=== PATIENT | female | born 1945 | race Caucasian/White ===

== ENCOUNTER 2019-09-29 16:03 | Inpatient (IN) | payer MEDICARE, SELFPAY ==
[2019-09-29 16:08] VITALS: BP 98/63; PULSE 77; RESP 16; TEMP 36.3; O2SAT 100
[2019-09-29 17:30] VITALS: BP 108/81; PULSE 71; RESP 18; O2SAT 97
--- NOTE | 2019-09-29 18:11 | PC.NURSE ---
DAUGHTER JAYNE RIOS CALLED AND UPDATED PT'S MEDICATION LIST. CALL [phone] IF ANY QUESTIONS.
[2019-09-29 18:30] VITALS: BP 110/86; PULSE 70; RESP 16; O2SAT 97
[2019-09-29 19:01] LABS: Basophils Absolute Auto 0.1 K/mm3 (0.0-0.1); Eosinophils Absolute Auto 0.6 K/mm3 (0-0.3); Hematocrit 36.6 % (37.0-47.0); Hemoglobin 11.9 g/dL (12.0-15.0); Immature Granulocyte Absolute 0.03 K/mm3 (0.00-0.031); Immature Granulocyte Percent A 0.4 % (0-0.5); Lymphocytes Absolute Auto 1.57 K/mm3 (0.9-3.2); Lymphocytes Percent Auto 20.6 % (18.3-44.2); Mean Corpuscular HGB Conc 32.5 g/dl (32-36); Mean Corpuscular Hemoglobin 27.3 pg (26-34); Mean Corpuscular Volume 83.9 fl (80-100); Mean Platelet Volume 11.1 fl (7.4-10.4); Monocytes Absolute Auto 0.8 K/mm3 (0.1-0.6); Monocytes Percent Auto 10.2 % (2.6-8.5); Neutrophils Absolute Auto 4.6 K/mm3 (1.3-6.7); Neutrophils Percent Auto 59.8 % (45.5-73.1); Platelet Count Result 310 k/mm3 (150-375); Red Blood Count 4.36 M/mm3 (4.2-5.4); Red Cell Distribution Width 14.9 % (11.5-14.5); White Blood Count 7.6 K/mm3 (4.5-10.0)
[2019-09-29 19:13] LABS: Alanine Aminotransferase 11 U/L (4-35); Albumin Level 3.2 g/dL (3.5-5.1); Alkaline Phosphatase 110 U/L (38-126); Aspartate Amino Transferase 25 U/L (14-36); Bilirubin,Total 0.3 mg/dL (0.2-1.3); Blood Urea Nitrogen 41 mg/dL (7-17); Calcium 8.8 mg/dL (8.4-10.2); Carbon Dioxide 28 mmol/L (22-30); Chloride 85 mmol/L (98-107); Estimated CRCL calculation 3 ml/min; Estimated Glomerular Filt Rate 4; Glucose 84 mg/dL (65-105); Potassium 3.9 mmol/L (3.4-5.0); Sodium 127 mmol/L (137-145)
--- NOTE | 2019-09-29 19:41 | ED.WEAKNESS ---
HPI - Weakness General Chief complaint: Weakness Stated complaint: needs a place to stay Time Seen by Provider: 09/29/19 18:05 Source: patient Mode of arrival: ambulatory Limitations: no limitations History of Present Illness HPI Narrative: This is a 73-year-old female that presents to the emergency department for placement. Patient reports she is unsure why she is in the ER. Was told by her home health nurse that she did not think she could care for herself at home. She recently had a stroke and was in rehab therapy at [facility]. Was discharged home with home health. Her daughter spoke with her chief payroll clerk, Dr. Zimmerman. They were told to come to the ER to facilitate with placement. Patient currently does not have any complaints. Denies fever, chest pain, shortness of breath, abdominal pain, or vomiting. Related Data Home Medications Medication Instructions Recorded Confirmed aspirin [Adult Low Dose Aspirin] 09/29/19 09/29/19 atorvastatin 09/29/19 cinacalcet [Sensipar] mg PO 09/29/19 famotidine [Pepcid] 09/29/19 lanolin znnldsb-wg-p.pet-ceres applic TOPICAL 09/29/19 [Eucerin] sevelamer HCl [Renagel] 09/29/19 temazepam mg 09/29/19 Allergies Allergy/AdvReac Type Severity Reaction Status Date / Time No Known Allergies Allergy Verified 09/29/19 16:19 Review of Systems Review of Systems: Narrative: CONSTITUTIONAL: Denies fever CARDIOVASCULAR: Denies chest pain RESPIRATORY: Denies dyspnea. GASTROINTESTINAL: Denies abdominal pain, nausea, vomiting All systems reviewed & are unremarkable except as noted in HPI and below PMFSH Past Medical History Medical History (Updated 09/29/19 @ 20:30 by Yumiko Tay PA-C) History of chronic kidney disease History of gastroesophageal reflux (GERD) History of hyperlipidemia History of insomnia Exam Narrative: Exam Narrative: GENERAL: Elderly, well-nourished, and in no acute distress. HEAD: Normocephalic, atraumatic. EYES: EOMI. CHEST: Clear to auscultation. No respiratory distress. No wheezes rales or rhonchi HEART: Regular rate and rhythm. No murmur heard. Normal peripheral pulses. ABDOMEN: Soft, nontender, nondistended, normal active bowel sounds. PD catheter in the left side of the abdomen, without surrounding erythema or abnormal drainage EXTREMITIES: Normal range of motion. No edema. SKIN: Warm, dry, no rash. NEURO: No focal deficits. Alert and oriented x3. PSYCH: Normal mood and affect Course Consultations Consultation #1: Spoke with Dr. Zimmerman who reports he spoke with patient's daughter. Home health reported her home was inhabitable. There was apparently cockroaches and trash everywhere. Patient was clearly not taking care of herself. Patient will be admitted for placement and he will consult to manage her dialysis Date: 09/29/19 Time: 20:27 Consultation #2: Spoke with hospitalist about patient work-up who accepts admission Date: 09/29/19 Time: 20:28 Vital Signs Vital signs: Vital Signs Temperature 97.4 F L 09/29/19 16:08 Pulse Rate 77 09/29/19 16:08 Respiratory Rate 16 09/29/19 16:08 Blood Pressure 98/63 L 09/29/19 16:08 Pulse Oximetry 100 09/29/19 16:08 Temperature 97.4 F L 09/29/19 16:08 Pulse Rate 70 09/29/19 18:30 Respiratory Rate 16 09/29/19 18:30 Blood Pressure 110/86 09/29/19 18:30 Pulse Oximetry 97 09/29/19 18:30 MDM - Weakness MDM Narrative Medical decision making narrative: Patient presents to the emergency department for placement. Currently has no complaints. CBC without concerning findings. Metabolic panel consistent with her end-stage renal disease. Spoke with Dr. Zimmerman about patient and work-up. He was called by the daughter who reports [facility] came for their visit today and said her home was inhabitable. She was clearly not taking care of herself. Patient needs to be placed and will be admitted to the hospital awaiting placement. He will consult and manage her dialysis whi
[2019-09-29 21:20] VITALS: BP 121/74; PULSE 69; RESP 18; O2SAT 98
--- NOTE | 2019-09-29 22:22 | ADMGEN ---
This patient, Neli Winslow, was admitted to 2 Medical Room 242-. Patient/family oriented to hospital policies and general routines including ID bracelet, bed and alarms, visiting hours, pain management, procedures, bathroom and other care routines, personal items, smoking policy, room service/diet, and visiting hours. Valuables list has been completed. Information on how to activate the Rapid Response Team has been discussed. Patient/Family are encouraged to report perceived risks to care and to ask questions if they do not understand what they are told or what they should do.
--- NOTE | 2019-09-29 22:23 | PC.NURSE ---
report to [facility] on [facility]
[2019-09-29 22:30] VITALS: BP 135/73; PULSE 63; RESP 21; TEMP 36.1; O2SAT 100
[2019-09-29 22:51] VITALS: BMI 22.2
[2019-09-30 06:00] VITALS: BP 123/71; PULSE 66; RESP 21; TEMP 36; O2SAT 100
[2019-09-30] MEDS: CALCIUM CARBONATE (TUMS) 500 MG (200 MG ELEMENTAL) PO ×2 (09:45→20:15)
--- NOTE | 2019-09-30 09:48 | PM.IMHP ---
H&P: HPI History of Present Illness Chief complaint: Inability to care for self at home Narrative: Date of Service 09/30/19 0900 Ms. Winslow is a 73yo F with history of recent CVA 3 weeks ago, end-stage renal disease on peritoneal dialysis, hyperlipidemia who presented to the ED after reportedly a home health agency visited her home and had concerns for her to be living in her home alone. Per the records, a home health nurse noted the home to be full of trash, infested with cockroaches and described it as inhabitable. She follows with Dr Zimmerman for end-stage renal disease and tells me she has been on peritoneal dialysis for ten years. She describes she ambulates with a cane but has been having difficulty walking in her home. She reports she suffered a stroke around 3 weeks ago for which she was hospitalized at [facility] and then stayed at [facility] for therapy rehabilitation. She believes she came home from rehab last Saturday and has been living at home alone over the last 1 week. She tells me she has not had any issues carrying out her PD at home. This morning she reports heartburn and mild nausea without vomiting but otherwise has no complaints. She denies chest pain, shortness of breath, cough, fevers, sick contacts at home or recent travel. She denies abdominal pain, vomiting, constipation, or diarrhea. She is admitted to observation for help placement, which may be a difficult task given her peritoneal dialysis. She tells me she does not think she would be able to move in with family. Case management aware. Review of Systems Review of Systems: Narrative: Twelve systems were reviewed with pertinent positives and negatives as per HPI. 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 She reports rarely drinking alcohol, only on holidays. She denies tobacco or other substance use, never smoker. She tells me she does not have a primary care provider but thinks she was assigned on upon her recent discharge from [place] rehab. She designates her daughter, Crystal Winslow, as her surrogate decision maker and she wishes to be full code status. Smoking status: Never smoker Alcohol intake: current Alcohol use details: less than 1 drink per month, occasionally one drink on holidays like and Substance use: never Substance use type: does not use Living arrangements: alone Occupation/Education: retired Gender identity (if verbalized by the patient): Female Spiritual care concerns: No Meds Home Medications and Allergies Home Medications Medication Instructions Recorded Confirmed Type aspirin [Adult Low Dose Aspirin] 81 mg PO DAILY 09/29/19 09/29/19 History atorvastatin 40 mg PO DAILY 09/29/19 09/29/19 History cinacalcet [Sensipar] 60 mg PO DAILY 09/29/19 09/29/19 History famotidine [Pepcid] 20 mg PO DAILY 09/29/19 09/29/19 History lanolin dojynfy-el-a.pet-ceres 1 applic TOPICAL TID 09/29/19 09/29/19 History [Eucerin] sevelamer HCl [Renagel] 800 mg PO AC 09/29/19 09/29/19 History temazepam 15 mg PO HS PRN 09/29/19 09/29/19 History Allergies Allergy/AdvReac Type Severity Reaction Status Date / Time No Known Allergies Allergy Verified 09/29/19 16:19 Vital Signs Vital Signs - 24 hr 09/29/19 16:08 09/29/19 17:30 09/29/19 18:30 Temperature 97.4 F L Pulse Rate 77 71 70 Respiratory Rate 16 18 16 Blood Pressure 98/63 L 108/81
--- NOTE | 2019-09-30 13:26 | PM.CNNEP ---
Assessment and Plan Assessment and plan (1) End stage renal disease: Code(s): N18.6 - End stage renal disease Status: Chronic (2) History of CVA (cerebrovascular accident): Code(s): Z86.73 - Personal history of transient ischemic attack (TIA), and cerebral infarction without residual deficits Status: Acute (3) Discharge planning issues: Code(s): Z02.9 - Encounter for administrative examinations, unspecified Status: Acute Assessment and Plan: . Additional Plan Neli has end-stage renal disease and is on peritoneal dialysis. Unfortunately, her home living situation is such that it is not safe for her to return home given the deplorable conditions as outlined by home health nursing. Hence, she has been admitted to the hospital for placement. Placement is also somewhat complicated by the fact that she is on peritoneal dialysis and as there are not many facilities that will take a patient who is on peritoneal dialysis in general. The case finishing machine adjuster/case management has already contacted me and informed me that there are not any specific facilities that the patient can go where she can receive peritoneal dialysis in general. As there are no facilities that will take a patient who is on peritoneal dialysis, I will likely have to transition the patient to hemodialysis temporarily so she can receives reliable dialysis in general until she can be either set up with some type of assisted living situation or even perhaps maybe a new apartment where she could resume her home peritoneal dialysis. As far as I am aware, the patient still able to do peritoneal dialysis but she needs a safe environment to do so which unfortunately she does not have at this time. I will consult surgery to place a tunneled dialysis catheter for the transition to hemodialysis and try to arrange for the patient to be set up at a facility where they can transport her to and from dialysis until more permanent arrangements are made where she can be at a facility/apartment/complex where she can do home hemodialysis herself, if possible. I will continue follow the patient with you while she remains hospitalized a continue her peritoneal dialysis up until her tunneled dialysis catheters placed and I transition her to hemodialysis. Thank you for allowing me to participate in the care this patient. History of Present Illness Reason for Consult Consult date: 09/30/19 Reason for consult: end stage renal disease Chief Complaint Chief complaint: Inability to care for self at home History of Present Illness Narrative: The patient is a 73 y/o female with a past medical history as outlined below who presented to [facility] ER due to concerns regarding her home/living situation. The patient was just recently discharged from the [facility] associated with [facility] after suffering a CVA/stroke approximately 3 weeks ago where she was hospitalized at [facility]. She was transferred to the [facility] at [facility] for ongoing physical and occupational therapy. Upon complete of such therapy, she was deemed stable be discharged back home with continued follow-up by home health. The home health nurse did his initial visit yesterday but he found her home full of trash/garbage everywhere with evidence of roaches and insects present throughout the house and deemed her house to be inhabitable. The home health nurse contacted me since I am apparently the only physician really involved in her care since I follow her for her peritoneal dialysis. He recommended that the patient be sent back to the hospital so that measures could be taken for the patient to be discharged to a facility given the current home situation. Workup and evaluation emergency room was unremarkable as she was hemodynamically stable and had routine blood tests/labs that were consistent with her known history of end-stage raza
[2019-09-30 14:00] VITALS: BP 93/64; PULSE 75; RESP 19; TEMP 36.4; O2SAT 100
[2019-09-30] MEDS: FAMOTIDINE 20 MG TABLET PO (14:29)
[2019-09-30] MEDS: ASPIRIN 81 MG ENTERIC TABLET PO (14:29)
[2019-09-30] MEDS: SEVELAMER CARBONATE 800 MG TABLET PO ×2 (14:29→18:16)
[2019-09-30] MEDS: ATORVASTATIN 40 MG TABLET PO (14:29)
[2019-09-30] MEDS: EUCERIN CREAM 120 GM JAR 1 APPLIC TOPICAL ×2 (14:30→18:26)
[2019-09-30 20:00] VITALS: BP 101/66; PULSE 75; RESP 18; TEMP 36.6; O2SAT 100
[2019-10-01 04:00] VITALS: BP 102/58; PULSE 67; RESP 18; TEMP 36.3; O2SAT 98
[2019-10-01 06:22] LABS: Basophils Absolute Auto 0.1 K/mm3 (0.0-0.1); Eosinophils Absolute Auto 0.8 K/mm3 (0-0.3); Eosinophils Percent Auto 9.8 % (0-4.4); Hematocrit 32.6 % (37.0-47.0); Hemoglobin 10.8 g/dL (12.0-15.0); Immature Granulocyte Absolute 0.03 K/mm3 (0.00-0.031); Immature Granulocyte Percent A 0.4 % (0-0.5); Lymphocytes Absolute Auto 1.82 K/mm3 (0.9-3.2); Lymphocytes Percent Auto 23.8 % (18.3-44.2); Mean Corpuscular HGB Conc 33.1 g/dl (32-36); Mean Corpuscular Hemoglobin 27.3 pg (26-34); Mean Corpuscular Volume 82.3 fl (80-100); Monocytes Absolute Auto 0.9 K/mm3 (0.1-0.6); Monocytes Percent Auto 11.6 % (2.6-8.5); Neutrophils Absolute Auto 4.1 K/mm3 (1.3-6.7); Neutrophils Percent Auto 53.4 % (45.5-73.1); Platelet Count Result 289 k/mm3 (150-375); Red Blood Count 3.96 M/mm3 (4.2-5.4); Red Cell Distribution Width 14.5 % (11.5-14.5); White Blood Count 7.7 K/mm3 (4.5-10.0)
[2019-10-01 06:46] LABS: Albumin Level 2.6 g/dL (3.5-5.1); Blood Urea Nitrogen 36 mg/dL (7-17); Calcium 8.7 mg/dL (8.4-10.2); Carbon Dioxide 28 mmol/L (22-30); Chloride 90 mmol/L (98-107); Estimated CRCL calculation 4 ml/min; Estimated Glomerular Filt Rate 4; Glucose 82 mg/dL (65-105); Magnesium 1.8 mg/dL (1.6-2.3); Phosphorus 5.4 mg/dL (2.5-4.5); Sodium 128 mmol/L (137-145)
[2019-10-01 08:08] LABS: INR 1.1; Prothrombin Time 13.8 Seconds (11.1-14.7)
[2019-10-01 08:09] LABS: Partial Thromboplastin Time 33.7 SECONDS (22.3-36.8)
[2019-10-01] MEDS: POTASSIUM CHLORIDE 20 MEQ TABLET 40 MEQ PO (09:32)
[2019-10-01] MEDS: ASPIRIN 81 MG ENTERIC TABLET PO (09:33)
[2019-10-01] MEDS: SEVELAMER CARBONATE 800 MG TABLET PO ×3 (09:33→16:57)
[2019-10-01] MEDS: ATORVASTATIN 40 MG TABLET PO (09:33)
[2019-10-01] MEDS: EUCERIN CREAM 120 GM JAR 1 APPLIC TOPICAL ×3 (09:34→16:57)
[2019-10-01] MEDS: CINACALCET 30 MG TABLET 60 MG PO (09:34)
[2019-10-01] MEDS: FAMOTIDINE 20 MG TABLET PO (09:37)
--- NOTE | 2019-10-01 10:59 | PM.CNGS ---
Assessment and Plan Assessment and plan (1) End stage renal disease: Code(s): N18.6 - End stage renal disease Status: Chronic (2) Admission for fitting and adjustment of vascular catheter: Code(s): Z45.2 - Encounter for adjustment and management of vascular access device Status: Acute Assessment and Plan: Patient refuses tunneled central venous catheter for dialysis. No consult done. Will sign off. 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 She reports rarely drinking alcohol, only on holidays. She denies tobacco or other substance use, never smoker. She tells me she does not have a primary care provider but thinks she was assigned on upon her recent discharge from [place] rehab. She designates her daughter, Crystal Winslow, as her surrogate decision maker and she wishes to be full code status. Smoking status: Never smoker Alcohol intake: current Alcohol use details: less than 1 drink per month, occasionally one drink on holidays like and Substance use: never Substance use type: does not use Living arrangements: alone Occupation/Education: retired Gender identity (if verbalized by the patient): Female Spiritual care concerns: No Meds Home Medications and Allergies Home Medications Medication Instructions Recorded Confirmed Type aspirin [Adult Low Dose Aspirin] 81 mg PO DAILY 09/29/19 09/29/19 History atorvastatin 40 mg PO DAILY 09/29/19 09/29/19 History cinacalcet [Sensipar] 60 mg PO DAILY 09/29/19 09/29/19 History famotidine [Pepcid] 20 mg PO DAILY 09/29/19 09/29/19 History lanolin uculuff-ig-u.pet-ceres 1 applic TOPICAL TID 09/29/19 09/29/19 History [Eucerin] sevelamer HCl [Renagel] 800 mg PO AC 09/29/19 09/29/19 History temazepam 15 mg PO HS PRN 09/29/19 09/29/19 History Allergies Allergy/AdvReac Type Severity Reaction Status Date / Time No Known Allergies Allergy Verified 09/29/19 16:19 Vital Signs Vital Signs - 24 hr 09/30/19 14:00 09/30/19 20:00 10/01/19 04:00 Temperature 36.4 C 36.6 C 36.3 C L Pulse Rate 75 75 67 Respiratory Rate 19 18 18 Blood Pressure 93/64 L 101/66 102/58 L Pulse Oximetry 100 100 98 Results Labs Result diagrams: 10/01/19 05:33 10/01/19 05:33 Labs: Abnormal lab results 10/01/19 10/01/19 Range/Units 05:33 05:33 RBC 3.96 L (4.2-5.4) M/mm3 Hgb 10.8 L (12.0-15.0) g/dL Hct 32.6 L (37.0-47.0) % MPV 11.0 H (7.4-10.4) fl [place] % (Auto) 11.6 H (2.6-8.5) % Eos % (Auto) 9.8 H (0-4.4) % [place] # (Auto) 0.9 H (0.1-0.6) K/mm3 Eos # (Auto) 0.8 H (0-0.3) K/mm3 Sodium 128 L (137-145) mmol/L Potassium 3.0 L (3.4-5.0) mmol/L Chloride 90 L (98-107) mmol/L BUN 36 H (7-17) mg/dL Creatinine 10.00 H (0.7-1.0) mg/dL Estimated GFR 4 L (59 - ) Phosphorus 5.4 H (2.5-4.5) mg/dL Albumin 2.6 L (3.5-5.1) g/dL Diabetes panel 10/01/19 Range/Units 05:33 Sodium 128 L (137-145) mmol/L Potassium 3.0 L (3.4-5.0) mmol/L Chloride 90 L (98-107) mmol/L Carbon Dioxide 28 (22-30) mmol/L BUN 36 H (7-17) mg/dL Creatinine 10.00 H (0.7-1.0) mg/dL Glucose 82 (65-105) mg/dL Calcium 8.7 (8.4-10.2) mg/dL Albumin 2.6 L (3.5-5.1) g/dL Calcium panel 10/01/19 R
--- NOTE | 2019-10-01 13:08 | PM.IMPN ---
Progress Note: A&P Assessment and Plan (1) Discharge planning issues: Code(s): Z02.9 - Encounter for administrative examinations, unspecified Status: Acute Assessment and Plan: Patient was sent to ED by someone who visited the home and found her home to be inhabitable, with concerns for her to continue caring for herself at home. Case management aware. She will be going to stay with her daughter and will continue PD there. Will order PT/OT as she describes difficulty ambulating. Her PD supplies will be delivered to daughters home 10/07. CC is working with [employer] to get supplies delivered sooner. (2) ESRD on peritoneal dialysis: Code(s): N18.6 - End stage renal disease; Z99.2 - Dependence on renal dialysis Status: Chronic Assessment and Plan: Patient with ESRD tells me she has been on peritoneal dialysis for [address] Zimmerman and he has been consulted - appreciate recommendations. (3) History of CVA (cerebrovascular accident): Code(s): Z86.73 - Personal history of transient ischemic attack (TIA), and cerebral infarction without residual deficits Status: Acute Assessment and Plan: Patient describes recently having a stroke around 3 weeks ago for which she was hospitalized at [facility]. She stayed at [facility] for rehabilitation following her hospital stay and was discharged home 1 week ago. Continue ASA therapy and appreciate PT/OT evals. (4) GERD (gastroesophageal reflux disease): Qualifiers: Esophagitis presence: esophagitis presence not specified Qualified Code(s): K21.9 - Gastro-esophageal reflux disease without esophagitis Code(s): K21.9 - Gastro-esophageal reflux disease without esophagitis Status: Chronic Assessment and Plan: Stable at this time, will continue Tums prn and scheduled pepcid. (5) Hyperlipidemia: Qualifiers: Hyperlipidemia type: unspecified Qualified Code(s): E78.5 - Hyperlipidemia, unspecified Code(s): E78.5 - Hyperlipidemia, unspecified Status: Acute Assessment and Plan: Maintained on home statin therapy. Subjective Date/time seen: 10/01/19 13:08 Interval history: Date of service: 10/01/2019 She reports that she is feeling well today. She says she finally was able to get some rest last night and is feeling better. She does complain of left shoulder pain which she believes is due to pushing herself up in bed. She is urinating infrequently. She had a bowel movement yesterday but feels constipated today. Her appetite has been fair. She denies shortness of breath, chest pain, palpitations, abdominal pain, nausea, vomiting, fever, or chills. She has no additional concerns at this time. Review of Systems Review of Systems: Narrative: A 12 point review of systems was reviewed with pertinent positives and negatives as per HPI. Exam Narrative: Exam Narrative: General: Well-developed female resting comfortably, sitting up in bed in acute distress. HEENT: Normocephalic, atraumatic, EOMI, PERRL. Left facial droop noted. Neck: Supple. No lymphadenopathy. Chest: Faint bibasilar crackles; respirations even and nonlabored. Tolerating room air. Heart: Heart rate and rhythm regular with S1-S2. Abdomen: Soft, nontender, nondistended, bowel sounds present. PD catheter noted with clean/dry/intact dressing. Skin: Warm, dry, no rashes or lesions noted on limited exam. Extremities: Peripheral pulses intact. No edema, erythema, cyanosis, or clubbing. Neurologic: Alert and oriented x4. Upper extremity strength 5/5 bilaterally. Left facial droop noted. Speech is clear. Psychiatric: Mood and affect are normal, cooperative. Judgment and insight intact. Objective Data Vital Signs Vital Signs: Vital Signs - 24 hr 09/30/19 14:00 09/15
[2019-10-01] MEDS: ACETAMINOPHEN 325 MG TABLET 650 MG PO (13:16)
[2019-10-01] MEDS: SENNA/DOCUSATE SODIUM TABLET 1 TAB PO (13:17)
[2019-10-01 14:00] VITALS: BP 99/66; PULSE 96; RESP 14; TEMP 36.3; O2SAT 100
--- NOTE | 2019-10-01 16:52 | PM.PNNEP ---
Progress Note: A&P Assessment and Plan (1) End stage renal disease: Code(s): N18.6 - End stage renal disease Status: Chronic Assessment and Plan: continue CCPD while hospitalized daughter now able to take to her home -- she can do peritoneal dialysis there (so need for HD catheter placement) will try to facilitate transfer of supplies and PD cycler to daughter's home (2) History of CVA (cerebrovascular accident): Code(s): Z86.73 - Personal history of transient ischemic attack (TIA), and cerebral infarction without residual deficits Status: Acute Assessment and Plan: continue PT/OT as tolerated (3) Discharge planning issues: Code(s): Z02.9 - Encounter for administrative examinations, unspecified Status: Acute Assessment and Plan: daughter now willing take patient to her home temporarily patient should be able to do PD treatments at daughter's home working on trying to facilitate delivery of PD supplies to daughter'ss home Will continue to follow. Subjective Date/time seen: 10/01/19 16:52 Tolerated peritoneal dialysis last night without any issues or problems; refused tunneled HD catheter placement this AM as she does not want to do hemodialysis informed that daughter now willing to take her to live with her and continue peritoneal dialysis. Exam Narrative: Exam Narrative: General: WD/WN female in NAD Heart: normal S1 and S2; no rub Lungs: clear to auscultation Abdomen: soft, nontender, nondistended, positive bowel sounds Extremities: no cyanosis or clubbing; no edema Skin: warm and dry Objective Data Vital Signs Vital Signs: Vital Signs Temp Pulse Resp BP Pulse Ox 10/01/19 14:00 36.3 C L 96 14 99/66 L 100 10/01/19 04:00 36.3 C L 67 18 102/58 L 98 09/30/19 20:00 36.6 C 75 18 101/66 100 Intake/Output Intake/Output: Intake & Output 09/28/19 09/29/19 09/30/19 10/01/19 23:59 23:59 23:59 23:59 Intake Total 1270 340 Output Total 429 Balance 1270 -89 Meds/Results Medications: Active Medications Generic Name Dose Route Start Last Admin Trade Name Freq PRN Reason Stop Dose Admin Acetaminophen 650 mg 10/01/19 12:45 10/01/19 13:16 Tylenol Tablet PO 650 mg Q4H PRN Administration Mild Pain (1-3) or Fever Aspirin 81 mg 09/30/19 09:00 10/01/19 09:33 Aspirin Ec PO 81 mg DAILY MARIBELL Administration Atorvastatin Calcium 40 mg 09/30/19 09:00 10/01/19 09:33 Lipitor PO 40 mg DAILY MARIBELL Administration Calcium Carbonate 200 mg 09/30/19 09:24 09/30/19 20:15 Tums PO 200 mg Q6H PRN Administration Indigestion Cinacalcet 60 mg 09/30/19 09:00 10/01/19 09:34 Sensipar PO 60 mg QAM MARIBELL Administration Famotidine 20 mg 09/30/19 09:00 10/01/19 09:37 Pepcid PO 20 mg DAILY MARIBELL Administration Multi-Ingred Cream/Lotion/Oil/Oint 1 applic 09/30/19 09:00 10/01/19 12:40 Minerin Creme TOPICAL 1 applic TID MARIBELL Administration Senna/Docusate Sodium 1 tab 10/01/19 12:45 10/01/19 13:17 Senokot S Tablet PO 1 tab DAILY PRN Administration Constipation Sevelamer Carbonate 800 mg 09/30/19 08:00 10/01/19 12:40 Renvela PO 800 mg TIDWM MARIBELL Administration Temazepam 15 mg 09/30/19 02:53 Restoril PO HS PRN Sleep Labs Labs: Laboratory Tests 10/01/19 05:33 10/01/19 05:33 Microbiology 09/30/19 00:41 Blood Blood Culture - Preliminary 09/30/19 00:43 Blood Blood Culture - Preliminary Quality Patient tolerated peritoneal dialysis yesterday evening without any problems ([id number]).
[2019-10-01 22:00] VITALS: BP 110/80; PULSE 70; RESP 21; TEMP 36.6; O2SAT 100
[2019-10-01] MEDS: CALCIUM CARBONATE (TUMS) 500 MG (200 MG ELEMENTAL) PO (22:10)
[2019-10-02 05:42] LABS: Hemoglobin 10.7 g/dL (12.0-15.0); Mean Corpuscular HGB Conc 32.4 g/dl (32-36); Mean Corpuscular Hemoglobin 27.2 pg (26-34); Mean Corpuscular Volume 83.8 fl (80-100); Mean Platelet Volume 10.5 fl (7.4-10.4); Platelet Count Result 278 k/mm3 (150-375); Red Blood Count 3.94 M/mm3 (4.2-5.4); Red Cell Distribution Width 14.9 % (11.5-14.5); White Blood Count 7.4 K/mm3 (4.5-10.0)
[2019-10-02 06:00] VITALS: BP 122/72; PULSE 70; RESP 21; TEMP 36.4; O2SAT 100
[2019-10-02 06:08] LABS: Blood Urea Nitrogen 35 mg/dL (7-17); Calcium 8.5 mg/dL (8.4-10.2); Carbon Dioxide 28 mmol/L (22-30); Chloride 91 mmol/L (98-107); Estimated CRCL calculation 4 ml/min; Estimated Glomerular Filt Rate 4; Glucose 74 mg/dL (65-105); Magnesium 1.8 mg/dL (1.6-2.3); Phosphorus 4.9 mg/dL (2.5-4.5); Potassium 3.4 mmol/L (3.4-5.0); Sodium 128 mmol/L (137-145)
[2019-10-02] MEDS: SEVELAMER CARBONATE 800 MG TABLET PO ×3 (08:06→16:52)
[2019-10-02] MEDS: ASPIRIN 81 MG ENTERIC TABLET PO (08:06)
[2019-10-02] MEDS: FAMOTIDINE 20 MG TABLET PO (08:07)
[2019-10-02] MEDS: CINACALCET 30 MG TABLET 60 MG PO (08:07)
[2019-10-02] MEDS: ATORVASTATIN 40 MG TABLET PO (08:07)
[2019-10-02] MEDS: EUCERIN CREAM 120 GM JAR 1 APPLIC TOPICAL ×3 (08:07→16:52)
[2019-10-02] MEDS: ACETAMINOPHEN 325 MG TABLET 650 MG PO (08:07)
--- NOTE | 2019-10-02 09:42 | PM.IMPN ---
Progress Note: A&P Assessment and Plan (1) Discharge planning issues: Code(s): Z02.9 - Encounter for administrative examinations, unspecified Status: Acute Assessment and Plan: Patient was sent to ED by someone who visited the home and found her home to be inhabitable, with concerns for her to continue caring for herself at home. Case management aware. She will be going to stay with her daughter and will continue PD there. Her PD supplies will be delivered to daughters home 10/04. (2) ESRD on peritoneal dialysis: Code(s): N18.6 - End stage renal disease; Z99.2 - Dependence on renal dialysis Status: Chronic Assessment and Plan: Patient with ESRD tells me she has been on peritoneal dialysis for [address] Zimmerman and he has been consulted - appreciate recommendations. (3) History of CVA (cerebrovascular accident): Code(s): Z86.73 - Personal history of transient ischemic attack (TIA), and cerebral infarction without residual deficits Status: Chronic Assessment and Plan: Patient describes recently having a stroke around 3 weeks ago for which she was hospitalized at [facility]. She stayed at [facility] for rehabilitation following her hospital stay and was discharged home 09/22.\ Continue ASA therapy and PT/OT. (4) GERD (gastroesophageal reflux disease): Qualifiers: Esophagitis presence: esophagitis presence not specified Qualified Code(s): K21.9 - Gastro-esophageal reflux disease without esophagitis Code(s): K21.9 - Gastro-esophageal reflux disease without esophagitis Status: Chronic Assessment and Plan: Stable at this time, will continue Tums prn and scheduled pepcid. (5) Hyperlipidemia: Qualifiers: Hyperlipidemia type: unspecified Qualified Code(s): E78.5 - Hyperlipidemia, unspecified Code(s): E78.5 - Hyperlipidemia, unspecified Status: Chronic Assessment and Plan: Maintained on home statin therapy. Subjective Date/time seen: 10/02/19 09:20 Interval history: Ms. Winslow is a 73yo F with ESRD on peritoneal dialysis admitted for discharge planning issues, see above. She reports feeling well today and offers no complaints. She slept okay last night and no issues with PD overnight. She denies chest pain or shortness of breath. She is tolerating oral intake without nausea or vomiting. Review of Systems Review of Systems: Narrative: Twelve systems were reviewed with pertinent positives and negatives as per HPI. Exam Narrative: Exam Narrative: General: Female resting comfortably, sitting up in bed in acute distress. HEENT: Normocephalic, atraumatic, EOMI. Left facial droop noted. Neck: Supple. Chest: Lungs clear to auscultation; respirations even and nonlabored. Tolerating room air. Heart: Heart rate and rhythm regular. Abdomen: Soft, nontender, nondistended, bowel sounds present. PD catheter noted with clean/dry/intact dressing. Extremities: Peripheral pulses intact. No edema. Neurologic: Alert and oriented. Left facial droop from recent CVA is noted. Speech is clear. Objective Data Vital Signs Vital Signs: Last Vital Signs Temp 97.5 F L 10/02/19 06:00 Pulse 70 10/02/19 06:00 Resp 21 H 10/02/19 06:00 BP 122/72 10/02/19 06:00 Pulse Ox 100 10/02/19 06:00 Intake/Output Intake/Output: Intake & Output 09/29/19 09/30/19 10/01/19 10/02/19 23:59 23:59 23:59 23:59 Intake Total 1270 980 400 Output Total 429 Balance 1270 551 400 Meds/Results Medications: Active Medications Generic Name Dose Route Start Last Admin Trade Name Freq PRN Reason Stop Dose Admin Acetaminophen 650 mg 10/01/19 12:45 10/02/19 08:07 Tylenol Tablet PO 650 mg Q4H PRN Administration Mild Pain (1-3) or Fever Aspirin 81 mg
--- NOTE | 2019-10-02 12:07 | PM.PNNEP ---
Progress Note: A&P Assessment and Plan (1) End stage renal disease: Code(s): N18.6 - End stage renal disease Status: Chronic Assessment and Plan: continue CCPD while hospitalized daughter now able to take to her home -- she can do peritoneal dialysis there (so need for HD catheter placement) will try to facilitate transfer of supplies and PD cycler to daughter's home as soon as possible (2) History of CVA (cerebrovascular accident): Code(s): Z86.73 - Personal history of transient ischemic attack (TIA), and cerebral infarction without residual deficits Status: Chronic Assessment and Plan: continue PT/OT as tolerated (3) Discharge planning issues: Code(s): Z02.9 - Encounter for administrative examinations, unspecified Status: Acute Assessment and Plan: daughter now willing take patient to her home temporarily patient should be able to do PD treatments at daughter's home working on trying to facilitate delivery of PD supplies to daughter'ss home Will continue to follow. Subjective Date/time seen: 10/02/19 12:07 No new issues or problems to report; tolerating nightly CCPD without any issues or problems; no apparent distress noted. Exam Narrative: Exam Narrative: General: WD/WN female in NAD Heart: normal S1 and S2; no rub Lungs: clear to auscultation Abdomen: soft, nontender, nondistended, positive bowel sounds Extremities: no cyanosis or clubbing; no edema Skin: warm and intact Objective Data Vital Signs Vital Signs: Vital Signs Temp Pulse Resp BP Pulse Ox 10/02/19 06:00 36.4 C L 70 21 H 122/72 100 10/01/19 22:00 36.6 C 70 21 H 110/80 100 10/01/19 14:00 36.3 C L 96 14 99/66 L 100 Intake/Output Intake/Output: Intake & Output 09/29/19 09/30/19 10/01/19 10/02/19 23:59 23:59 23:59 23:59 Intake Total 1270 980 640 Output Total 429 Balance 1270 551 640 Meds/Results Medications: Active Medications Generic Name Dose Route Start Last Admin Trade Name Freq PRN Reason Stop Dose Admin Acetaminophen 650 mg 10/01/19 12:45 10/02/19 08:07 Tylenol Tablet PO 650 mg Q4H PRN Administration Mild Pain (1-3) or Fever Aspirin 81 mg 07/15/20 09:00 10/02/19 08:06 Aspirin Ec PO 81 mg DAILY MARIBELL Administration Atorvastatin Calcium 40 mg 09/30/19 09:00 10/02/19 08:07 Lipitor PO 40 mg DAILY MARIBELL Administration Calcium Carbonate 200 mg 09/30/19 09:24 10/01/19 22:10 Tums PO 200 mg Q6H PRN Administration Indigestion Cinacalcet 60 mg 09/30/19 09:00 10/02/19 08:07 Sensipar PO 60 mg QAM [facility] Administration Famotidine 20 mg 09/30/19 09:00 10/02/19 08:07 Pepcid PO 20 mg DAILY MARIBELL Administration Multi-Ingred Cream/Lotion/Oil/Oint 1 applic 09/30/19 09:00 10/02/19 08:07 Minerin Creme TOPICAL 1 applic TID MAR[facility] Administration Polyethylene Glycol 17 gm 10/01/19 16:52 Miralax PO QAM PRN Constipation Senna/Docusate Sodium 1 tab 10/01/19 12:45 10/01/19 13:17 Senokot S Tablet PO 1 tab DAILY PRN Administration Constipation Sevelamer Carbonate 800 mg 09/30/19 08:00 10/02/19 08:06 Renvela PO 800 mg TIDWM [facility] Administration Temazepam 15 mg 09/30/19 02:53 Restoril PO HS PRN Sleep Labs Labs: Laboratory Tests 10/02/19 05:01 10/02/19 05:01 Microbiology 09/30/19 00:43 Blood Blood Culture - Preliminary
[2019-10-02 14:00] VITALS: BP 108/70; PULSE 77; RESP 18; TEMP 36.2; O2SAT 100
[2019-10-02] MEDS: CALCIUM CARBONATE (TUMS) 500 MG (200 MG ELEMENTAL) PO (16:54)
[2019-10-02 22:00] VITALS: BP 107/71; PULSE 71; RESP 18; TEMP 36.9; O2SAT 99
[2019-10-03 05:42] LABS: Hematocrit 33.7 % (37.0-47.0); Hemoglobin 11.1 g/dL (12.0-15.0)
[2019-10-03 05:50] LABS: Albumin Level 2.7 g/dL (3.5-5.1); Blood Urea Nitrogen 34 mg/dL (7-17); Calcium 8.4 mg/dL (8.4-10.2); Carbon Dioxide 27 mmol/L (22-30); Chloride 92 mmol/L (98-107); Estimated CRCL calculation 4 ml/min; Estimated Glomerular Filt Rate 4; Glucose 88 mg/dL (65-105); Magnesium 1.8 mg/dL (1.6-2.3); Potassium 3.3 mmol/L (3.4-5.0); Sodium 128 mmol/L (137-145)
[2019-10-03 06:00] VITALS: BP 93/55; PULSE 70; RESP 16; TEMP 36.3; O2SAT 97
--- NOTE | 2019-10-03 09:20 | PM.IMPN ---
Progress Note: A&P Assessment and Plan (1) Discharge planning issues: Code(s): Z02.9 - Encounter for administrative examinations, unspecified Status: Acute Assessment and Plan: Patient was sent to ED by someone who visited the home and found her home to be inhabitable, with concerns for her to continue caring for herself at home. Case management aware. She will be going to stay with her daughter and will continue PD there. Her PD supplies will be delivered to daughters home 10/04. Plan for discharge Saturday. (2) ESRD on peritoneal dialysis: Code(s): N18.6 - End stage renal disease; Z99.2 - Dependence on renal dialysis Status: Chronic Assessment and Plan: Patient with ESRD tells me she has been on peritoneal dialysis for [address] Zimmerman and he has been consulted - appreciate recommendations. (3) History of CVA (cerebrovascular accident): Code(s): Z86.73 - Personal history of transient ischemic attack (TIA), and cerebral infarction without residual deficits Status: Chronic Assessment and Plan: Patient describes recently having a stroke around 3 weeks ago for which she was hospitalized at [facility]. She stayed at [facility] for rehabilitation following her hospital stay and was discharged home 09/22. Continue ASA therapy and PT/OT. (4) GERD (gastroesophageal reflux disease): Qualifiers: Esophagitis presence: esophagitis presence not specified Qualified Code(s): K21.9 - Gastro-esophageal reflux disease without esophagitis Code(s): K21.9 - Gastro-esophageal reflux disease without esophagitis Status: Chronic Assessment and Plan: No issues this morning, will continue Tums PRN and scheduled pepcid. (5) Hyperlipidemia: Qualifiers: Hyperlipidemia type: unspecified Qualified Code(s): E78.5 - Hyperlipidemia, unspecified Code(s): E78.5 - Hyperlipidemia, unspecified Status: Chronic Assessment and Plan: Maintained on home statin therapy. Subjective Date/time seen: 10/03/19 0845 Interval history: Ms. Winslow is a 73yo F with ESRD on peritoneal dialysis admitted for discharge planning issues, see above. She feels well today and offers no complaints other than not sleeping well last night. She denies chest pain, shortness of breath, or calf tenderness. Tolerated some breakfast without nausea, vomiting, or abdominal pain. Review of Systems Review of Systems: Narrative: Twelve systems were reviewed with pertinent positives and negatives as per HPI. Exam Narrative: Exam Narrative: General: Female resting comfortably in bed in acute distress. HEENT: Normocephalic, atraumatic, EOMI. Left facial droop noted. Neck: Supple. Chest: Lungs clear to auscultation; respirations even and nonlabored. Tolerating room air. Heart: Heart rate and rhythm regular. Abdomen: Soft, nontender, nondistended, bowel sounds present. PD catheter noted with clean/dry/intact dressing. Extremities: Peripheral pulses intact. No edema. Neurologic: Alert and oriented. Left facial droop from recent CVA is noted. Speech is clear. Objective Data Vital Signs Vital Signs: Last Vital Signs Temp 97.3 F L 10/03/19 06:00 Pulse 70 10/03/19 06:00 Resp 16 10/03/19 06:00 BP 93/55 L 10/03/19 06:00 Pulse Ox 97 10/03/19 06:00 Intake/Output Intake/Output: Intake & Output 09/30/19 10/01/19 10/02/19 10/03/19 23:59 23:59 23:59 23:59 Intake Total 7936 217 8544 200 Output Total 331 960 5218 Balance 1270 551 163 -875 Meds/Results Medications: Active Medications Generic Name Dose Route Start Last Admin Trade Name Freq PRN Reason Stop Dose Admin Acetaminophen 650 mg 10/01/19 12:45 10/02/19 08:07 Tylenol Tablet PO 650 mg Q4H PRN Administration Mild Pain (1-3) or
[2019-10-03] MEDS: ONDANSETRON INJ 4 MG/2 ML VIAL IV PUSH (10:08)
[2019-10-03] MEDS: ASPIRIN 81 MG ENTERIC TABLET PO (11:18)
[2019-10-03] MEDS: SEVELAMER CARBONATE 800 MG TABLET PO ×2 (11:18→18:14)
[2019-10-03] MEDS: MAGNESIUM OXIDE 400 MG TABLET PO (11:18)
[2019-10-03] MEDS: FAMOTIDINE 20 MG TABLET PO (11:18)
[2019-10-03] MEDS: POTASSIUM CHLORIDE 20 MEQ TABLET 40 MEQ PO (11:18)
[2019-10-03] MEDS: ATORVASTATIN 40 MG TABLET PO (11:19)
[2019-10-03] MEDS: EUCERIN CREAM 120 GM JAR 1 APPLIC TOPICAL (11:20)
--- NOTE | 2019-10-03 12:19 | PM.PNNEP ---
Progress Note: A&P Assessment and Plan (1) End stage renal disease: Code(s): N18.6 - End stage renal disease Status: Chronic Assessment and Plan: continue CCPD while hospitalized daughter now able to take to her home -- she can do peritoneal dialysis there (so need for HD catheter placement) will try to facilitate transfer of supplies and PD cycler to daughter's home as soon as possible (possibly be there by Saturday?) (2) History of CVA (cerebrovascular accident): Code(s): Z86.73 - Personal history of transient ischemic attack (TIA), and cerebral infarction without residual deficits Status: Chronic Assessment and Plan: continue PT/OT as tolerated (3) Discharge planning issues: Code(s): Z02.9 - Encounter for administrative examinations, unspecified Status: Acute Assessment and Plan: daughter now willing take patient to her home temporarily patient should be able to do PD treatments at daughter's home working on trying to facilitate delivery of PD supplies to daughter'ss home Will continue to follow. Subjective Date/time seen: 10/03/19 12:19 She appears to be doing reasonably well; no new issues or problems to report; CCPD treatment was uneventful; no apparent distress or new concerns voiced at this time. Exam Narrative: Exam Narrative: General: WD/WN female in NAD Heart: normal S1 and S2; no rub Lungs: clear to auscultation Abdomen: soft, nontender, nondistended, positive bowel sounds Extremities: no cyanosis or clubbing; no edema Skin: No rash or nodules Objective Data Vital Signs Vital Signs: Vital Signs Temp Pulse Resp BP Pulse Ox 10/03/19 06:00 36.3 C L 70 16 93/55 L 97 10/02/19 22:00 36.9 C 71 18 107/71 99 10/02/19 14:00 36.2 C L 77 18 108/70 100 Intake/Output Intake/Output: Intake & Output 09/30/19 10/01/19 10/02/19 10/03/19 23:59 23:59 23:59 23:59 Intake Total 3810 595 5770 440 Output Total 346 470 9467 Balance 1270 551 163 -745 Meds/Results Medications: Active Medications Generic Name Dose Route Start Last Admin Trade Name Freq PRN Reason Stop Dose Admin Acetaminophen 650 mg 10/01/19 12:45 10/02/19 08:07 Tylenol Tablet PO 650 mg Q4H PRN Administration Mild Pain (1-3) or Fever Aspirin 81 mg 09/30/19 09:00 10/03/19 11:18 Aspirin Ec PO 81 mg DAILY MARIBELL Administration Atorvastatin Calcium 40 mg 09/30/19 09:00 10/03/19 11:19 Lipitor PO 40 mg DAILY MARIBELL Administration Calcium Carbonate 200 mg 09/30/19 09:24 10/02/19 16:54 Tums PO 200 mg Q6H PRN Administration Indigestion Cinacalcet 60 mg 09/30/19 09:00 10/03/19 12:16 Sensipar PO Not Given QAM MARIBELL Famotidine 20 mg 09/30/19 09:00 10/03/19 11:18 Pepcid PO 20 mg DAILY MARIBELL Administration Magnesium Oxide 400 mg 10/03/19 09:00 10/03/19 11:18 Mag-Ox PO 400 mg QAM [facility] Administration Multi-Ingred Cream/Lotion/Oil/Oint 1 applic 09/30/19 09:00 10/03/19 11:20 Minerin Creme TOPICAL 1 applic TID [facility] Administration Ondansetron HCl 4 mg 10/03/19 10:00 10/03/19 10:08 Zofran Inj IV PUSH 4 mg Q6H PRN Administration Nausea And Vomiting Polyethylene Glycol 17 gm 10/01/19 16:52 Miralax PO QAM PRN Constipation Senna/Docusate Sodium 1 tab 10/01/19 12:45 10/01/19 13:17 Senokot S Tablet PO 1 tab DAILY PRN Administration Constipation Sevelamer Carbonate 800 mg 09/30/19 08:00 10/03/19 11:18 Renvela PO 800 mg TIDWM [facility] Administration Temazepam 15 mg 09/30/19 02:53 Restoril PO HS PRN Sleep Labs Labs: Laboratory Tests 10/03/19 05:02 10/03/19 05:02 Microbiology 09/30/19 00:43 Blood Blood Culture - Preliminary Coag negative Staphylococcus 09/30/19 00:41 Blood Blood Culture - Preliminary Quality Patient tolerated peritoneal dialysis overn
[2019-10-03 14:00] VITALS: BP 100/67; PULSE 75; RESP 20; TEMP 36.4; O2SAT 99
[2019-10-03] MEDS: CALCIUM CARBONATE (TUMS) 500 MG (200 MG ELEMENTAL) PO (19:48)
[2019-10-03 22:00] VITALS: BP 107/82; PULSE 78; RESP 22; TEMP 36.4; O2SAT 100
[2019-10-03] MEDS: TEMAZEPAM 15 MG CAPSULE PO (23:12)
[2019-10-04 04:55] LABS: Blood Urea Nitrogen 42 mg/dL (7-17); Calcium 8.7 mg/dL (8.4-10.2); Carbon Dioxide 28 mmol/L (22-30); Chloride 91 mmol/L (98-107); Estimated CRCL calculation 4 ml/min; Estimated Glomerular Filt Rate 3; Glucose 70 mg/dL (65-105); Magnesium 2.1 mg/dL (1.6-2.3); Potassium 4.9 mmol/L (3.4-5.0); Sodium 127 mmol/L (137-145)
[2019-10-04 05:58] VITALS: BP 101/67; PULSE 66; RESP 20; TEMP 36.1; O2SAT 98
[2019-10-04] MEDS: MAGNESIUM OXIDE 400 MG TABLET PO (09:55)
[2019-10-04] MEDS: ATORVASTATIN 40 MG TABLET PO (09:55)
[2019-10-04] MEDS: FAMOTIDINE 20 MG TABLET PO (09:55)
[2019-10-04] MEDS: SEVELAMER CARBONATE 800 MG TABLET PO ×3 (09:55→17:16)
[2019-10-04] MEDS: CINACALCET 30 MG TABLET 60 MG PO (09:56)
[2019-10-04] MEDS: EUCERIN CREAM 120 GM JAR 1 APPLIC TOPICAL (09:56)
[2019-10-04] MEDS: ASPIRIN 81 MG ENTERIC TABLET PO (09:56)
[2019-10-04] MEDS: CALCIUM CARBONATE (TUMS) 500 MG (200 MG ELEMENTAL) PO (11:19)
--- NOTE | 2019-10-04 13:20 | PM.IMPN ---
Progress Note: A&P Assessment and Plan (1) Discharge planning issues: Code(s): Z02.9 - Encounter for administrative examinations, unspecified Status: Acute Assessment and Plan: Patient was sent to ED by someone who visited the home and found her home to be inhabitable, with concerns for her to continue caring for herself at home. Case management aware. She will be going to stay with her daughter and will continue PD there. Her PD supplies will be delivered to daughters home tomorrow; anticipate discharge tomorrow. (2) ESRD on peritoneal dialysis: Code(s): N18.6 - End stage renal disease; Z99.2 - Dependence on renal dialysis Status: Chronic Assessment and Plan: Patient with ESRD tells me she has been on peritoneal dialysis for [address] Zimmerman and he has been consulted - appreciate recommendations. (3) History of CVA (cerebrovascular accident): Code(s): Z86.73 - Personal history of transient ischemic attack (TIA), and cerebral infarction without residual deficits Status: Chronic Assessment and Plan: Patient describes recently having a stroke around 3 weeks ago for which she was hospitalized at [facility]. She stayed at [facility] for rehabilitation following her hospital stay and was discharged home 09/22. Continue ASA therapy and PT/OT. (4) GERD (gastroesophageal reflux disease): Qualifiers: Esophagitis presence: esophagitis presence not specified Qualified Code(s): K21.9 - Gastro-esophageal reflux disease without esophagitis Code(s): K21.9 - Gastro-esophageal reflux disease without esophagitis Status: Chronic Assessment and Plan: Stable, will continue Tums PRN and scheduled pepcid. (5) Hyperlipidemia: Qualifiers: Hyperlipidemia type: unspecified Qualified Code(s): E78.5 - Hyperlipidemia, unspecified Code(s): E78.5 - Hyperlipidemia, unspecified Status: Chronic Assessment and Plan: Maintained on home statin therapy. Subjective Date/time seen: 10/04/19 1245 Interval history: Ms. Winslow is a 73yo F with ESRD on peritoneal dialysis admitted for discharge planning issues, see above. She feels well today and offers no complaints. Some issue with PD last night is unclear to me. She denies chest pain, shortness of breath, or calf tenderness. Tolerating oral intake without nausea, vomiting. Exam Narrative: Exam Narrative: General: Female resting comfortably in bed in acute distress. HEENT: Normocephalic, atraumatic, EOMI. Left facial droop noted. Neck: Supple. Chest: Lungs clear to auscultation; respirations even and nonlabored. Tolerating room air. Heart: Heart rate and rhythm regular. Abdomen: Soft, nontender, nondistended, bowel sounds present. PD catheter noted with clean/dry/intact dressing. Extremities: Peripheral pulses intact. No edema. Neurologic: Alert and oriented. Left facial droop from recent CVA is noted. Speech is clear. Objective Data Vital Signs Vital Signs: Last Vital Signs Temp 97 F L 10/04/19 05:58 Pulse 66 10/04/19 05:58 Resp 20 10/04/19 05:58 BP 101/67 10/04/19 05:58 Pulse Ox 98 10/04/19 05:58 Intake/Output Intake/Output: Intake & Output 10/01/19 10/02/19 10/03/19 10/04/19 23:59 23:59 23:59 23:59 Intake Total 980 1080 1220 530 Output Total 388 624 8506 Balance 551 163 -205 530 Meds/Results Medications: Active Medications Generic Name Dose Route Start Last Admin Trade Name Freq PRN Reason Stop Dose Admin Acetaminophen 650 mg 10/01/19 12:45 10/02/19 08:07 Tylenol Tablet PO 650 mg Q4H PRN Administration Mild Pain (1-3) or Fever Aspirin 81 mg 09/30/19 09:00 10/04/19 09:56 Aspirin Ec PO 81 mg DAILY MARIBELL Administration Atorvastatin Calcium 40 mg 09/30/19 09:00
--- NOTE | 2019-10-04 13:54 | P.PNNP_ITS ---
Progress Note: A&P Assessment and Plan (1) End stage renal disease: Code(s): N18.6 - End stage renal disease Status: Chronic Assessment and Plan: * continue CCPD while hospitalized * daughter now able to take to her home -- she can do peritoneal dialysis there (so need for HD catheter placement) * will try to facilitate transfer of supplies and PD cycler to daughter's home as soon as possible (theoretically should be there by tomorrow per case management) (2) History of CVA (cerebrovascular accident): Code(s): Z86.73 - Personal history of transient ischemic attack (TIA), and cerebral infarction without residual deficits Status: Chronic Assessment and Plan: * continue PT/OT as tolerated (3) Hyponatremia: Code(s): E87.1 - Hypo-osmolality and hyponatremia Status: Chronic Assessment and Plan: * somewhat of a chronic issue * likely related to her ESRD * follow trend (4) Bacteremia: Code(s): R78.81 - Bacteremia Status: Acute Assessment and Plan: * 1 out of 2 sets with coag negative staph * repeat blood culture pending * suspect contamination (5) Discharge planning issues: Code(s): Z02.9 - Encounter for administrative examinations, unspecified Status: Acute Assessment and Plan: * daughter now willing take patient to her home temporarily * patient should be able to do PD treatments at daughter's home * working on trying to facilitate delivery of PD supplies to daughter'ss home Will continue to follow. Subjective Date/time seen: 10/04/19 13:54 Some issues with PD cycler last night (connections were done wrong?) so immanuel zayasently did not get a full treatment last night; otherwise, she seems to be feeling reasonably well; no apparent distress noted; no events noted earlier today. Exam Narrative: Exam Narrative: General: WD/WN female in NAD Heart: normal S1 and S2; no rub Lungs: clear to auscultation Abdomen: soft, nontender, nondistended, positive bowel sounds Extremities: no cyanosis or clubbing; no edema Skin: No rash or nodules Objective Data Vital Signs Vital Signs: Vital Signs - 24 hr 10/03/19 14:00 10/03/19 22:00 10/04/19 05:58 Temperature 36.4 C L 36.4 C 36.1 C L Pulse Rate 75 78 66 Respiratory Rate 20 22 H 20 Blood Pressure 100/67 107/82 101/67 Pulse Oximetry 99 100 98 Intake/Output Intake/Output: Intake & Output 10/01/19 10/02/19 10/03/19 10/04/19 23:59 23:59 23:59 23:59 Intake Total 980 1080 1220 530 Output Total 391 566 6689 Balance 551 163 -205 530 Meds/Results Medications: Active Medications Generic Name Dose Route Start Last Admin Trade Name Freq PRN Reason Stop Dose Admin Acetaminophen 650 mg 10/01/19 12:45 10/02/19 08:07 Tylenol Tablet PO 650 mg Q4H PRN Administration Mild Pain (1-3) or Fever Aspirin 81 mg 09/30/19 09:00 10/04/19 09:56 Aspirin Ec PO 81 mg DAILY MARIBELL Administration Atorvastatin Calcium 40 mg 09/30/19 09:00 10/04/19 09:55 Lipitor PO 40 mg DAILY MARIBELL Administration Calcium Carbonate 200 mg 09/30/19 09:24 10/04/19 11:19 Tums PO 200 mg Q6H PRN Administration Indigestion Cinacalcet 60 mg
--- NOTE | 2019-10-04 13:54 | PM.PNNEP ---
Progress Note: A&P Assessment and Plan (1) End stage renal disease: Code(s): N18.6 - End stage renal disease Status: Chronic Assessment and Plan: continue CCPD while hospitalized daughter now able to take to her home -- she can do peritoneal dialysis there (so need for HD catheter placement) will try to facilitate transfer of supplies and PD cycler to daughter's home as soon as possible (theoretically should be there by tomorrow per case management) (2) History of CVA (cerebrovascular accident): Code(s): Z86.73 - Personal history of transient ischemic attack (TIA), and cerebral infarction without residual deficits Status: Chronic Assessment and Plan: continue PT/OT as tolerated (3) Hyponatremia: Code(s): E87.1 - Hypo-osmolality and hyponatremia Status: Chronic Assessment and Plan: somewhat of a chronic issue likely related to her ESRD follow trend (4) Bacteremia: Code(s): R78.81 - Bacteremia Status: Acute Assessment and Plan: 1 out of 2 sets with coag negative staph repeat blood culture pending suspect contamination (5) Discharge planning issues: Code(s): Z02.9 - Encounter for administrative examinations, unspecified Status: Acute Assessment and Plan: daughter now willing take patient to her home temporarily patient should be able to do PD treatments at daughter's home working on trying to facilitate delivery of PD supplies to daughter'ss home Will continue to follow. Subjective Date/time seen: 10/04/19 13:54 Some issues with PD cycler last night (connections were done wrong?) so apparently did not get a full treatment last night; otherwise, she seems to be feeling reasonably well; no apparent distress noted; no events noted earlier today. Exam Narrative: Exam Narrative: General: WD/WN female in NAD Heart: normal S1 and S2; no rub Lungs: clear to auscultation Abdomen: soft, nontender, nondistended, positive bowel sounds Extremities: no cyanosis or clubbing; no edema Skin: No rash or nodules Objective Data Vital Signs Vital Signs: Vital Signs - 24 hr 10/03/19 14:00 10/03/19 22:00 10/04/19 05:58 Temperature 36.4 C L 36.4 C 36.1 C L Pulse Rate 75 78 66 Respiratory Rate 20 22 H 20 Blood Pressure 100/67 107/82 101/67 Pulse Oximetry 99 100 98 Intake/Output Intake/Output: Intake & Output 10/01/19 10/02/19 10/03/19 10/04/19 23:59 23:59 23:59 23:59 Intake Total 980 1080 1220 530 Output Total 595 790 4900 Balance 551 163 -205 530 Meds/Results Medications: Active Medications Generic Name Dose Route Start Last Admin Trade Name Freq PRN Reason Stop Dose Admin Acetaminophen 650 mg 10/01/19 12:45 10/02/19 08:07 Tylenol Tablet PO 650 mg Q4H PRN Administration Mild Pain (1-3) or Fever Aspirin 81 mg 09/30/19 09:00 10/04/19 09:56 Aspirin Ec PO 81 mg DAILY [facility] Administration Atorvastatin Calcium 40 mg 09/30/19 09:00 10/04/19 09:55 Lipitor PO 40 mg DAILY [facility] Administration Calcium Carbonate 200 mg 09/30/19 09:24 10/04/19 11:19 Tums PO 200 mg Q6H PRN Administration Indigestion Cinacalcet 60 mg 09/30/19 09:00 10/04/19 09:56 Sensipar PO 60 mg QAM [facility] Administration Famotidine 20 mg 09/30/19 09:00 10/04/19 09:55 Pepcid PO 20 mg DAILY [facility] Administration Magnesium Oxide 400 mg 10/03/19 09:00 10/04/19 09:55 Mag-Ox PO 400 mg QAM [facility] Administration Multi-Ingred Cream/Lotion/Oil/Oint 1 applic 09/30/19 09:00 10/04/19 12:04 Minerin Creme TOPICAL Not Given TID [facility] Ondansetron HCl 4 mg 10/03/19 10:00 10/03/19 10:08 Zofran Inj IV PUSH 4 mg Q6H PRN Administration Nausea And Vomiting Polyethylene Glycol 17 gm 10/01/19 16:52 Miralax PO QAM PRN Constipation Senna/Docusate Sodium 1 tab 10/01/19 12:45 10/01/19 13:17 Senokot S Tablet PO 1 tab DAILY PRN
[2019-10-04 14:00] VITALS: BP 128/72; PULSE 74; RESP 17; TEMP 36.4; O2SAT 100
[2019-10-04] MEDS: ONDANSETRON INJ 4 MG/2 ML VIAL IV PUSH (15:15)
[2019-10-04 20:00] VITALS: PULSE 74; RESP 17; O2SAT 100
[2019-10-04 21:58] VITALS: BP 98/67; PULSE 71; RESP 16; TEMP 36; O2SAT 98
[2019-10-04] MEDS: TEMAZEPAM 15 MG CAPSULE PO (23:00)
[2019-10-05 04:49] LABS: Hematocrit 33.9 % (37.0-47.0); Hemoglobin 10.9 g/dL (12.0-15.0)
[2019-10-05 05:05] LABS: Albumin Level 2.6 g/dL (3.5-5.1); Blood Urea Nitrogen 41 mg/dL (7-17); Calcium 8.6 mg/dL (8.4-10.2); Carbon Dioxide 26 mmol/L (22-30); Chloride 92 mmol/L (98-107); Estimated CRCL calculation 3 ml/min; Estimated Glomerular Filt Rate 3; Glucose 89 mg/dL (65-105); Phosphorus 4.7 mg/dL (2.5-4.5); Potassium 4.3 mmol/L (3.4-5.0); Sodium 128 mmol/L (137-145)
[2019-10-05 05:48] VITALS: BP 97/57; PULSE 72; RESP 16; TEMP 36.2; O2SAT 100
[2019-10-05] MEDS: SEVELAMER CARBONATE 800 MG TABLET PO (08:56)
[2019-10-05] MEDS: CINACALCET 30 MG TABLET 60 MG PO (08:56)
[2019-10-05] MEDS: ASPIRIN 81 MG ENTERIC TABLET PO (08:56)
[2019-10-05] MEDS: ATORVASTATIN 40 MG TABLET PO (08:56)
[2019-10-05] MEDS: FAMOTIDINE 20 MG TABLET PO (08:56)
[2019-10-05] MEDS: EUCERIN CREAM 120 GM JAR 1 APPLIC TOPICAL (08:57)
[2019-10-05] MEDS: MAGNESIUM OXIDE 400 MG TABLET PO (08:57)
--- NOTE | 2019-10-05 09:05 | PM.DS ---
DS: Admitting Diagnosis Admitting Diagnosis Admitting Diagnosis: End stage renal disease DS: Discharge Diagnosis Discharge Diagnosis (1) Discharge planning issues: Code(s): Z02.9 - Encounter for administrative examinations, unspecified Status: Acute Assessment and Plan: Patient was sent to ED by someone who visited the home and found her home to be inhabitable, with concerns for her to continue caring for herself at home. Case management aware. She will be going to stay with her daughter and will continue PD there. (2) ESRD on peritoneal dialysis: Code(s): N18.6 - End stage renal disease; Z99.2 - Dependence on renal dialysis Status: Chronic Assessment and Plan: Patient with ESRD tells me she has been on peritoneal dialysis for [address] Zimmerman and he followed while she was here. (3) History of CVA (cerebrovascular accident): Code(s): Z86.73 - Personal history of transient ischemic attack (TIA), and cerebral infarction without residual deficits Status: Chronic Assessment and Plan: Patient describes recently having a stroke around 3 weeks ago for which she was hospitalized at [facility]. She stayed at [facility] for rehabilitation following her hospital stay and was discharged home 09/22. Continue ASA therapy and PT/OT with home health. (4) GERD (gastroesophageal reflux disease): Qualifiers: Esophagitis presence: esophagitis presence not specified Qualified Code(s): K21.9 - Gastro-esophageal reflux disease without esophagitis Code(s): K21.9 - Gastro-esophageal reflux disease without esophagitis Status: Chronic Assessment and Plan: Stable, will continue Tums PRN and scheduled pepcid. (5) Hyperlipidemia: Qualifiers: Hyperlipidemia type: unspecified Qualified Code(s): E78.5 - Hyperlipidemia, unspecified Code(s): E78.5 - Hyperlipidemia, unspecified Status: Chronic Assessment and Plan: Maintained on home statin therapy. DS: Summary Hospital Course Hospital Course: Date of Service 10/05/19 Ms. Winslow is a 73yo F with end-stage renal disease on peritoneal dialysis who presented to the ED after reportedly a home health agency visited her home and had concerns for her to be living in her home alone. She reports she suffered a stroke around 3 weeks ago for which she was hospitalized at [facility] and then stayed at [facility] for therapy rehabilitation. She was discharged from rehab about 1 week prior to arrival and per the records, a home health nurse noted the home to be full of trash, infested with cockroaches and described it as inhabitable. She was seen by Dr Zimmerman, her cardiac/vascular sonographer, who recommended transition to hemodialysis temporarily so she could discharge to a nursing facility. Patient adamantly declined hemodialysis at this time. Case management held arrange discharge to patient's daughters house to continue PD. It took several days for all PD equipement to be delivered and arranged at the daughter's house, but she was finally able to discharge in stable condition 10/05/19 with plans to follow up with PCP and Dr Zimmerman. Initial blood cultures obtained on 09/29 grew Coagulase negative Staph in 1 of 4 bottles and was felt to be a contaminant. Repeat blood cultures obtained 10/02 were negative. Time Spent with Patient Time attestation: Total time spent providing and/or coordinating discharge services: 35 minutes Exam Narrative: Exam Narrative: General: Female resting comfortably in bed in acute distress. HEENT: Normocephalic, atraumatic, EOMI. Left facial droop noted. Neck: Supple. Chest: Lungs clear to auscultation; respirations even and nonlabored. Tolerating room air. Heart: Heart rate and rhythm regular. Abdomen: Soft, nontender, nondistended, bowel sounds pre
--- NOTE | 2019-10-05 12:43 | PC.NURSE ---
discharge instructions faxed to home health
== END 2019-10-05 13:14 | disposition home health service (06) | DRG 684 ==
LOC: ANHED 20:30 → ANH3MED 20:48 → ANH2MED 21:46
PROVIDERS: Physician Assistant; Admitting Provider Internal Medicine; Emergency Provider Emergency Medicine; PCP Internal Medicine Nephrology; Visit Provider Physician Assistant
DX: N18.6 End stage renal disease (principal); Z99.2 Dependence on renal dialysis; E87.6 Hypokalemia; E78.5 Hyperlipidemia, unspecified; K21.9 Gastro-esophageal reflux disease without esophagitis; Z86.73 Personal history of transient ischemic attack (TIA), and cerebral infarction without residual deficits
CPT/HCPCS: 36415; 80048; 80053; 80069; 83735; 84100; 85014; 85018; 85025; 85027; 85610; 85730; 87040; 87147; 87186; 90945; 97110; 97116; 97161; 97165; 97535; 99285; A9270; G0378; J2405